=== PATIENT | female | born 1970 | race Caucasian/White ===

== ENCOUNTER 2020-07-05 08:32 | Emergency (ER) | payer SELFPAY ==
[2020-07-05 08:40] VITALS: BP 142/88; PULSE 90; TEMP 97.9; BMI 31.2
[2020-07-05] MEDS ORDERED: ACETAMINOPHEN 1000 MG/100 ML VIAL (NON FORMULARY) IVPB ONE (09:05)
[2020-07-05] MEDS ORDERED: ONDANSETRON 4 MG/2 ML VIAL IVPUSH ONE (09:05)
[2020-07-05] MEDS ORDERED: SODIUM CHLORIDE 1,000 ML IV STA (09:05)
[2020-07-05] MEDS ORDERED: FAMOTIDINE 20 MG/50 ML IVPB 20 MG/50 ML MG IVPB ONE (09:05)
--- NOTE | 2020-07-05 09:05 | PDOC ---
History of Present Illness - General Chief Complaint: Nausea/Vomiting Stated Complaint: VOMITING/STOMACH PAIN Time Seen by Provider: 07/05/20 08:40 History Source: Patient Exam Limitations: No Limitations Past History - Travel History Traveled outside of the country in the last 30 days: No Close contact w/someone who was outside of country & ill: No - Medical History Allergies/Adverse Reactions: Allergies Allergy/AdvReac Type Severity Reaction Status Date / Time No Known Allergies Allergy Verified 07/05/20 08:42 Home Medications: Ambulatory Orders Famotidine [Pepcid -] 20 mg PO BID #14 tablet 07/05/20 Mag Hydrox/Al Hydrox/Simeth [Mylanta *Suspension*] 30 ml PO Q6H #1 bottle 07/05/20 Ondansetron [Zofran Odt -] 4 mg SL TID #10 tab.sl 07/05/20 COPD: No - Reproductive History Is Patient Now?: No - Psycho-Social/Smoking History Smoking History: Never smoked - Substance Abuse Hx (Audit-C & DAST Scrn) How often the patient has a drink containing alcohol: Never Score: In Men: 4 or > Positive; In Women: 3 or > Positive: 0 Screen Result (Pos requires Nsg. Audit-10AR): Negative In the last yr the pt used illegal drug/Rx for NonMed reason: No Score: Yes response is considered Positive: 0 Screen Result (Positive result requires Nsg. DAST-10): Negative Review of Systems - Review of Systems Able to Perform ROS?: Yes Comments:: 07/05/20 09:02 CONSTITUTIONAL: Absent: fever, chills, diaphoresis, generalized weakness, malaise, loss of appetite HEENT: Absent: rhinorrhea, nasal congestion, throat pain, throat swelling, difficulty swallowing, mouth swelling, ear pain, eye pain, visual Changes CARDIOVASCULAR: Absent: chest pain, loss of consciousness, palpitations, irregular heart rate, peripheral edema RESPIRATORY: Absent: cough, shortness of breath, dyspnea with exertion, orthopnea, wheezing, stridor, hemoptysis GASTROINTESTINAL: Present: Abdominal pain, nausea, vomiting Absent: abdominal distension, diarrhea, constipation, melena, hematochezia GENITOURINARY: Absent: dysuria, frequency, urgency, hesitancy, hematuria, flank pain, genital pain MUSCULOSKELETAL: Absent: myalgia, arthralgia, joint swelling SKIN: Absent: rash, itching, pallor HEMATOLOGIC/IMMUNOLOGIC: Absent: easy bleeding, easy bruising, lymphadenopathy, frequent infections ENDOCRINE: Absent: unexplained weight gain, unexplained weight loss, heat intolerance, cold intolerance NEUROLOGIC: Absent: headache, focal weakness or paresthesias, dizziness, unsteady gait, seizure, mental status changes, bladder or bowel incontinence PSYCHIATRIC: Absent: anxiety, depression, suicidal or homicidal ideation, hallucinations. Is the patient limited Lithuanian proficient: No *Physical Exam - Vital Signs Last Vital Signs Temp Pulse Resp BP Pulse Ox 97.9 F 90 16 142/88 100 07/05/20 08:37 07/05/20 08:37 07/05/20 08:37 07/05/20 08:37 07/05/20 08:37 - Physical Exam 07/05/20 09:02 GENERAL: Well developed, well nourished. Awake and alert. No acute distress. HEENT: Normocephalic, atraumatic. PERRLA, EOMI. No conjunctival pallor. Sclera are non- icteric. Moist mucous membranes. Oropharynx is clear. NECK: Supple. Full ROM. No lymphadenopathy. CARDIOVASCULAR: Regular rate and rhythm. No murmurs, rubs, or gallops. Distal pulses are 2+ and symmetric. PULMONARY: No evidence of respiratory distress. Lungs clear to auscultation bilaterally. No wheezing, rales or rhonchi. ABDOMINAL: Tenderness palpation of the left upper quadrant and epigastric regions. Soft. Non-distended. No rebound or guarding. No organomegaly. Normoactive bowel sounds. MUSCULOSKELETAL Normal range of motion at all joints. No bony deformities or tenderness. No CVA tenderness. EXTREMITIES: No cyanosis. No clubbing. No edema. No calf tenderness. SKIN: Warm and dry. Normal capillary refill. No rashes. No jaundice. NEUROLOGICAL: Alert, awake, appropriate. Cranial nerves 2-12 intact. No deficits to light touch and temperature in face, upper extremities and lower extremities. No motor deficits in the in face, upper extremities and lower extremities. Normoreflexic in the upper and lower extremities. Normal speech. Toes are down-going bilaterally. Gait is normal without ataxia. PSYCHIATRIC: Cooperative. Good eye contact. Appropriate mood and affect. ED Treatment Course - LABORATORY CBC & Chemistry Diagram: 07/05/20 10:00 07/05/20 10:00 Medical Decision Making - Medical Decision Making 07/05/20 09:03 Patient is a 49-year-old female with no past medical history, who presents to the ER today for nausea, vomiting and abdominal pain starting at 2 AM this morning. She states that she believes the pain is due to the chicken she ate last night. She states she has been unable to keep anything down. She currently feels nauseous. She has not been able to eat anything since last night due to the pain. Denies fevers, chills, sore throat, chest pain, difficulty breathing, dysuria, hematuria and flank pain. A/P: Abdominal pain On exam patient is tender to palpation of the left upper quadrant as well as the epigastric region. Differential diagnosis includes but is not limited to gastritis, gastroenteritis, pancreatitis, cholecystitis, cholangitis, diverticulitis, SBO Basic labs, fluids, antiemetics ordered We will defer CT scan at this time his pain is mostly located in the left upper quadrant and reevaluate. 07/05/20 11:20 Pain is improved with fluids, Zofran and Pepcid. Likely a gastroenteritis. No abdominal pain on repeat exam Discharge home with symptomatic relief I discussed the physical exam findings, ancillary test results and final diagnoses with the patient. I answered all of the patient's questions. The patient was satisfied with the care received and felt comfortable with the discharge plan and treatment plan. The Patient agrees to follow up with the primary care physician/specialist within 24-72 hours. Return precautions were given. Discharge - Discharge Information Problems reviewed: Yes Clinical Impression/Diagnosis: Gastroenteritis Condition: Stable Disposition: HOME - Admission No - Follow up/Referral Referrals: [facility] [place] [Provider Group] - Patient Discharge Instructions Patient Printed Discharge Instructions: DI for Vomiting -- Adult Additional Instructions: You have Vomiting. It is likely due to the food you ate last night. Please take Zofran every 8 hours as needed for nausea or vomiting. You may take the Pepcid twice a day to help with your acid. Take starting tonight. Avoid all dairy products until 48 hours after the vomiting/diarrhea has resolved. Eat a bland diet including apple sauce, toast, bananas, and plain rice Drink plenty of fluids including pedialyte, watered down juices and water Follow up with your primary care doctor this week Return to the ED if you develop fevers, abdominal pain, worsening vomiting, or if you have any changes in your symptoms. Tienes vmitos. Es probable que se deba a la comida que comiste anoche. Por favor, tome Zofran cada 8 horas segn sea necesario para las nuseas o vmitos. Usted puede myriam el Pepcid dos veces al da para ayudar con hartley cido. Nichole a partir de esta noche. Evite todos los productos lcteos hasta 48 horas despus de que se haya resuelto el vmito/diarrea. Consuma carmen dieta suave que incluya salsa de manzana, tostadas, pltanos y arroz sencillo Elizabeth muchos lquidos, shannon pedialyte, jugos diluidos y agua Jasson un seguimiento con hartley mdico de atencin primaria esta semana Vuelva a la EED si presenta fiebre, dolor abdominal, vmitos que empeoran o si tiene algn cambio en los sntomas. - Post Discharge Activity
[2020-07-05] MEDS ORDERED: ACETAMINOPHEN INJECTION 100 ML IVPB ONE (09:29)
[2020-07-05 10:11] LABS: BASO % 0.3 % (0-2.0); EOS % 0.1 % (0-4.5); HEMATOCRIT 40.6 % (32.4-45.2); HEMOGLOBIN 13.3 GM/dL (10.7-15.3); LYMPH % 8.7 % (8-40); MCH 28.4 pg (25.7-33.7); MCHC 32.9 g/dl (32.0-36.0); MEAN CELL VOLUME 86.4 fl (80-96); MEAN PLT VOLUME 8.1 fl (7.5-11.1); NEUT % 86.9 % (42.8-82.8); PLATELET COUNT 292 K/MM3 (134-434); RDW 13.8 % (11.6-15.6); WHITE BLOOD COUNT 9.7 K/mm3 (4.0-10.0)
[2020-07-05 10:49] LABS: ALBUMIN 3.9 g/dl (3.4-5.0); BILIRUBIN,TOTAL 0.5 mg/dL (0.2-1); BLOOD UREA NITROGEN 11.7 mg/dL (7-18); CALCIUM 9.4 mg/dL (8.5-10.1); CREATININE 0.7 mg/dL (0.55-1.3); POTASSIUM 4.8 mmol/L (3.5-5.1); TOT PROT 7.9 g/dl (6.4-8.2)
--- NOTE | 2020-07-06 12:39 | EKG ---
Test Reason : Blood Pressure : / mmHG Vent. Rate : 065 BPM Atrial Rate : 065 BPM P-R Int : 132 ms QRS Dur : 086 ms QT Int : 412 ms P-R-T Axes : 071 018 -15 degrees QTc Int : 428 ms NORMAL SINUS RHYTHM WITH SINUS ARRHYTHMIA NONSPECIFIC T WAVE ABNORMALITY ABNORMAL ECG NO PREVIOUS ECGS AVAILABLE Confirmed by KEN TENORIO MD ([id number]) on 07/06/2020 12:39:26 PM Referred By: Confirmed By:KEN TENORIO MD
== END 2020-07-05 11:47 | disposition home or self-care (01) ==
LOC: JER 08:32
PROC: 3E0333Z Introduction of Anti-inflammatory into Peripheral Vein, Percutaneous Approach (ICD-10-PCS; principal; 2020-07-05)
PROC: 3E033GC Introduction of Other Therapeutic Substance into Peripheral Vein, Percutaneous Approach (ICD-10-PCS; 2020-07-05)
PROC: 3E0337Z Introduction of Electrolytic and Water Balance Substance into Peripheral Vein, Percutaneous Approach (ICD-10-PCS; 2020-07-05)
DX: K52.9 Noninfective gastroenteritis and colitis, unspecified (principal)
CPT/HCPCS: 36415; 80053; 83690; 85025; 93005; 93010; 99284-25; J0131